=== PATIENT | male | born 1995 | race Caucasian/White ===

== ENCOUNTER 2017-01-12 20:57 | Emergency (ER) | payer BC ==
[~2017-01-12] VITALS: Ht 180.3 cm; Wt 75.0 kg
[2017-01-12 21:00] VITALS: TEMP 36.6; Ht 180.3 cm; Wt 75.0 kg
[2017-01-12 21:22] VITALS: O2SAT 98
[2017-01-12] MEDS ORDERED: ONDANSETRON INJ 2 MG/ML 2 ML VIAL IV STA (21:34)
[2017-01-12] MEDS ORDERED: DiphenhydrAMINE HCL 50 MG/ML VIAL IV STA (21:34)
[2017-01-12] MEDS ORDERED: SODIUM CHLORIDE 0.9% 1000ML 1,000 ML IV STA (21:34)
[2017-01-12 21:53] LABS: BASO % 0.3 %; BASO ABS # 0.03 K/uL (0-0.2); COMPLETE YES; EOS % 1.2 %; IG% 0.1 %; MEAN CELL VOLUME 88.8 fL (80-100); MEAN CORPUSCULAR HEMOGLOBIN 31.9 pg (25-34); MEAN PLATELET VOLUME 9.3 fL (7.4-10.4); MONO % 7.5 %; NEUT % 65.9 %; PLATELET COUNT 303 K/uL (130-400); RED BLOOD COUNT 5.29 M/uL (4.7-6.1); WHITE BLOOD COUNT 10.38 K/uL (4.8-10.8)
[2017-01-12 21:58] LABS: BUN/CREATININE RATIO 11.9 (10-20); CALCIUM 8.9 mg/dl (8.5-10.1); CREATININE 0.97 mg/dl (0.60-1.40); POTASSIUM 3.5 mmol/L (3.5-5.1)
[2017-01-12 22:45] LABS: MANUAL MICROSCOPIC REQUIRED? NO; URINE APPEARANCE CLEAR (CLEAR); URINE BILIRUBIN NEG (NEG); URINE COLOR YELLOW; URINE NITRITE NEG (NEG); URINE PH 6.5 (4.5-7.5); URINE SPECIFIC GRAVITY <= 1.005 (1.000-1.030); UROBILINOGEN NEG (NEG)
[2017-01-12 22:48] LABS: REVIEW REQ? NO
[2017-01-12 22:58] VITALS: BP 137/80
[2017-01-12 23:03] VITALS: PULSE 101; O2SAT 96
[2017-01-12 23:06] LABS: BENZODIAZEPINE, URINE NEG (NEG); COCAINE,URINE NEG (NEG); PHENCYCLIDINE, URINE NEG (NEG)
--- NOTE | 2017-01-12 23:20 | EMERGENCY ROOM VISIT NOTE ---
History Report prepared by Maeibsanjuana: Mary Quintero Under the Supervision of: Dr. Christian Claire D.O. First contact with patient: 21:31 Chief Complaint: SEIZURE Stated Complaint: FEELING HE IS GOING TO HAVE A SEZIURE Nursing Triage Summary: Pt reports that he is concerned he is going to have a seizure. States last time he had a seizure was 6mo ago. Pt states at approximately 2000 he developed hives, feels nauseated, and dehydrated. Was drinking alcohol yesterday and also this evening. Approximately 6 beers. States "this is what happened last time". Hives covering back, pt appears anxious with rushed shakey voice. History of Present Illness The patient is a 21 year old male who presents to the Emergency Room with complaints of an episode of feeling as if he was going to have a seizure with onset 1.5 hours ago. The patient was with friends in his apartment this evening when he suddenly developed hives. His friends note that the patient's entire face and body turned red very quickly. He started to feel very nauseous and light headed. Due to these symptoms, the patient became concerned as he had similar symptoms previously before he had a seizure. The patient has only had one seizure previously; he states he was treated for this at [facility] in [place] and that, at the time, physicians were unable to determine if he had a seizure or if he was dehydrated and then passed out. Tonight, the patient states that he drank about six beers. The patient denies passing out, having a seizure. Source of History: patient Onset: 1.5 hours Position: other (global ) Quality: other (feeling as if he may have a seizure) Timing: other (episode) Associated Symptoms: + nausea, + rash, No LOC Note: He denies having a seizure. He felt light headed. Review of Systems See HPI for pertinent positives & negatives. A total of 10 systems reviewed and were otherwise negative. Past Medical & Surgical Medical Problems: (1) Seizure Family History No pertinent family history Social History Smoking Status: Never Smoker Alcohol Use: occasionally Housing Status: lives with roommate Occupation Status: student Current/Historical Medications No Active Prescriptions or Reported Meds Allergies Coded Allergies: No Known Allergies (Unverified , 01/12/17) Physical Exam Vital Signs Date Time Temp Pulse Resp B/P Pulse Ox O2 Delivery O2 Flow Rate FiO2 01/12/17 23:03 101 19 96 01/12/17 22:58 137/80 01/12/17 22:03 109 22 99 01/12/17 21:58 154/101 01/12/17 21:57 111 21 99 01/12/17 21:23 116 01/12/17 21:22 98 Room Air 01/12/17 21:20 165/83 01/12/17 21:00 36.6 126 18 142/83 95 Room Air Physical Exam CONSTITUTIONAL/VITAL SIGNS: Reviewed / noted above. GENERAL: Non-toxic in appearance. INTEGUMENTARY: He has some mild erythema to the face, neck, and upper back. HEAD: Normocephalic. EYES: without scleral icterus or trauma. ENT/OROPHARYNX: clear and moist. LYMPHADENOPATHY/NECK: Is supple without lymphadenopathy or meningismus. RESPIRATORY: Lungs clear and equal. CARDIOVASCULAR: Regular rate and rhythm. GI/ABDOMEN: Soft and nontender. No organomegaly or pulsatile mass. No rebound or guarding. Normal bowel sounds. EXTREMITIES: Warm and well perfused. BACK: No CVA tenderness. NEUROLOGICAL: Intact without focal deficits. PSYCHIATRIC: normal affect. MUSCULOSKELETAL: Normally developed with good muscle tone. Medical Decision & Procedures Laboratory Results 01/12/17 21:28 Red Blood Count 5.29, Mean Corpuscular Volume 88.8, Mean Corpuscular Hemoglobin 31.9, Mean Corpuscular Hemoglobin Concent 36.0, Mean Platelet Volume 9.3, Neutrophils (%) (Auto) 65.9, Lymphocytes (%) (Auto) 25.0, Monocytes (%) (Auto) 7.5, Eosinophils (%) (Auto) 1.2, Basophils (%) (Auto) 0.3, Neutrophils # (Auto) 6.84, Lymphocytes # (Auto) 2.60, Monocytes # (Auto) 0.78, Eosinophils # (Auto) 0.12, Basophils # (Auto) 0.03 01/12/17 21:28 Test 01/12/17 21:28 01/12/17 21:45 White Blood Count 10.38 K/uL (4.8-10.8) Red Blood Count 5.29 M/uL (4.7-6.1) Hemoglobin 16.9 g/dL (14.0-18.0) Hematocrit 47.0 % (42-52) Mean Corpuscular Volume 88.8 fL (80-100) Mean Corpuscular Hemoglobin 31.9 pg (25-34) Mean Corpuscular Hemoglobin Concent 36.0 g/dl (32-36) Platelet Count 303 K/uL (130-400) Mean Platelet Volume 9.3 fL (7.4-10.4) Neutrophils (%) (Auto) 65.9 % Lymphocytes (%) (Auto) 25.0 % Monocytes (%) (Auto) 7.5 % Eosinophils (%) (Auto) 1.2 % Basophils (%) (Auto) 0.3 % Neutrophils # (Auto) 6.84 K/uL (1.4-6.5) Lymphocytes # (Auto) 2.60 K/uL (1.2-3.4) Monocytes # (Auto) 0.78 K/uL (0.11-0.59) Eosinophils # (Auto) 0.12 K/uL (0-0.5) Basophils # (Auto) 0.03 K/uL (0-0.2) RDW Standard Deviation 39.0 fL (36.4-46.3) RDW Coefficient of Variation 12.2 % (11.5-14.5) Immature Granulocyte % (Auto) 0.1 % Immature Granulocyte # (Auto) 0.01 K/uL (0.00-0.02) Anion Gap 11.0 mmol/L (3-11) Est Creatinine Clear Calc Drug Dose 127.8 ml/min Estimated GFR () 128.8 Estimated GFR (Non- 111.1 BUN/Creatinine Ratio 11.9 (10-20) Calcium Level 8.9 mg/dl (8.5-10.1) Urine Color YELLOW Urine Appearance CLEAR (CLEAR) Urine pH 6.5 (4.5-7.5) Urine Specific [place] <= 1.005 (1.000-1.030) Urine Protein NEG (NEG) Urine Glucose (UA) NEG (NEG) Urine Ketones NEG (NEG) Urine Occult Blood NEG (NEG) Urine Nitrite NEG (NEG) Urine Bilirubin NEG (NEG) Urine Urobilinogen NEG (NEG) Urine Leukocyte Esterase NEG (NEG) Urine Opiates Screen NEG (NEG) Urine Methadone, Qualitative NEG (NEG) Urine Barbiturates NEG (NEG) Urine Phencyclidine (PCP) Level NEG (NEG) Ur Amphetamine/Methamphetamine NEG (NEG) MDMA (Ecstasy) Screen NEG (NEG) Urine Benzodiazepines Screen NEG (NEG) Urine Cocaine Metabolite NEG (NEG) Urine Marijuana (THC) NEG (NEG) Laboratory results as stated above per my review. Medications Administered Medications (Trade) Dose Ordered Sig/Savi Route Start Time Stop Time Status Last Admin Dose Admin Diphenhydramine HCl (Benadryl Inj) 50 mg NOW STAT IV 01/12/17 21:34 01/12/17 21:35 DC 01/12/17 21:44 50 MG Ondansetron HCl 4 mg 4 mg NOW STAT IV 01/12/17 21:34 01/12/17 21:35 DC 01/12/17 21:44 4 MG Sodium Chloride (Nss 1000ml) 1,000 ml @ 999 mls/hr Q1H1M STAT IV 01/12/17 21:34 01/12/17 22:34 DC 01/12/17 21:44 999 MLS/HR ED Course 2131: Previous medical records were reviewed. The patient was evaluated in room C1. A complete history and physical examination was performed. 4: Sodium Chloride 1000 ml @ 999 mls/hr IV, Zofran 4 mg IV, Benadryl 50 mg IV 2320: On reevaluation, the patient is doing well. I discussed the results and findings with the patient. He verbalized agreement of the treatment plan. The patient was discharged home. Medical Decision The patient is a 21 year old male who presents to the ED with complaints of feeling as if he may have a seizure. The patient states that he became warm and nauseated and developed some redness to his skin. He states that he became lightheaded as well. Further details above. His heart rate was 116 when he arrived. He has some mild redness to the face, neck and upper back. His exam was otherwise unremarkable. His CBC is normal, PRP was normal. He had no seizure activity at any time and did not pass out. The patient was treated with IV Benadryl as well as IV fluids and IV Zofran. On reassessment, he was told the results. He is felt to be stable for discharge. His symptoms improved. Differential diagnosis: Etiologies such as vasovagal event, infection, hypoglycemia, electrolyte abnormalities, cardiac sources, intracerebral event, toxicologic, neurologic, as well as others were entertained. Impression Primary Impression: Nausea Additional Impression: Dizziness Scribe Attestation The scribe's documentation has been prepared under my direction and personally reviewed by me in its entirety. I confirm that the note above accurately reflects all work, treatment, procedures, and medical decision making performed by me. Departure Information Dispostion Home / Self-Care Prescriptions No Active Prescriptions or Reported Meds Patient Instructions My [facility] Additional Instructions Follow-up with your doctor or S in 1-3 days if symptoms persist. Return for any concerns or worsening. Problem Qualifiers
== END 2017-01-12 23:24 | disposition home or self-care (01) ==
LOC: C.EDB 20:59 → C.EDC 23:24
DX: R11.0 Nausea (principal); R42 Dizziness and giddiness